=== PATIENT | male | born 1980 | race Caucasian/White ===

== ENCOUNTER 2025-02-12 16:32 | Emergency (ER) | payer MEDICAID ==
[~2025-02-12] VITALS: Ht 172.7 cm; Wt 87.2 kg
[2025-02-12 16:35] VITALS: BP 169/102; PULSE 115; RESP 20; O2SAT 100
--- NOTE | 2025-02-12 17:24 | RADIOLOGY REPORT ---
CLINICAL INDICATION: Left thumb injury TECHNIQUE: 3 radiographic views of the left fingers were obtained. COMPARISON: None FINDINGS/IMPRESSION: There is no evidence of acute fracture or dislocation. The visualized joint space is well maintained. The alignment is anatomical. There is no radiopaque foreign body. If symptoms persist, consider repeat imaging in 7-10 days to follow-up on occult fractures.
--- NOTE | 2025-02-12 18:06 | Physician Documentation ---
History of Present Illness ~ Chief Complaint: Laceration Stated Complaint: L THUMB LAC Time Seen by MD: 16:47 OK to notify your PCP?: Yes Primary Medical Doctor: None Source: patient Mode of Arrival: POV Exam Limitations: no limitations HPI This is a 44-year-old male who comes in for a laceration to the left thumb. The patient was using a table saw when he accidentally caught his some of the table saw. Bleeding stopped prior to arrival with direct pressure. The patient states he does not need a tetanus shot. Medication Reconciliation Allergies: Coded Allergies: meperidine HCl (Verified Allergy, Severe, 02/12/25) Scheduled PRN Hydrocodone Bit/Acetaminophen 5/325 MG ([place] 5/325 MG), 1 TAB PO Q4H PRN for moderate or severe pain Past Medical History Past Medical History: No Pertinent History Past Surgical History: no surgical history Alcohol Use: None Drug Use: none Occupation: employed Physical Exam Vital Signs: Temperature: 98.5, Source: Temporal, Heart Rate: 115, Respiratory Rate: 20, BP: 169/102, Pulse Oximetry: 100, Weight: 87.200 Oxygen Flow Rate: 0 General Appearance: alert, WD/WN Extremities To inspection of the left thumb the patient has atraumatic appearing laceration to the pad of the thumb with the tip. It is all in the flexor aspect. That has a proximally 1.5 cm in total length. There is active hemorrhaging but not arterial. This does not overlying the joint. The thumb has full flexion- extension 5/5 against resistance. The nail bed and nail are not involved. Cap refill less than 2 seconds and brisk of the tip of the thumb. Procedures Laceration/Wound Repair Laceration : Length (cm): 1.5 Anesthesia: Lidocaine Prep: betadine, irrigated by physician Margins: revised Repaired: skin Wound Repaired With: sutures Suture Size/Type: 4-0, ethilon Dressing Applied: gauze, non-adherent Tolerated Procedure Well?: yes, no complications Progress Results/Orders Reviewed/noted all lab results: Yes Results/Orders Orders - DANIEL KELLER Finger(S) (02/12/25 16:52) Laceration/I&D Tray Set Up (02/12/25 18:00) Completed Orders - DANIEL KELLER Finger(S) (02/12/25 16:52) Lidocaine 1% W/Preservative (Lidocaine 1 (02/12/25 18:00) Vital Signs 02/12/25 02/12/25 16:35 18:57 Temp 98.5 98.5 Pulse 115 Resp 20 B/P (MAP) 169/102 Pulse Ox 100 O2 Flow Rate 0 Medical Decision Making Additional information obtaine: N/A Findings I performed a digital block and explored the wound with a base and bloodless field. There was no significant underlying injury. I then irrigated with copious amount of normal saline then had the patient soak his thumb in a Betadine saline solution. I then trimmed off dramatic tissue and closed with 4- 0 nylon simple interrupted sutures. The patient tolerated the procedure well. Differential Dx:Considerations: Include: Laceration Additional Comments Left thumb laceration. Left thumb distal phalanx fracture. Open fracture left thumb Departure Disposition: HOME / SELF CARE / HOMELESS Impression: Primary Impression: Laceration of left thumb Condition: Stable Discharge Instructions: Laceration Care, Adult, [id number] Additional Instructions: The current dressing clean dry and do not remove it. After two days you can remove the dressing, gently cleanse the area with antibacterial soap and water, dry well and covered with a nonstick dressing. No peroxide. No Neosporin. No top of the alcohol. Suture removal in 10 days. Return to the ER for any worsening or concerning symptoms Referrals: NO PRIMARY CARE PROVIDER (PCP) Prescriptions Hydrocodone Bit/Acetaminophen 5/325 MG ([place] 5/325 MG) 5 Mg/325 Mg Tablet 1 TAB PO Q4H PRN for moderate or severe pain, #10 TAB Prov: DANIEL KELLER 02/12/25 Signature Scribe Signature: No scribe Attestation: The note accurately reflects work and decisions made by me.Daniel MCMANUS 02/12/25 18:53 DANIEL KELLER Feb 12, 2025 18:06
[2025-02-12] MEDS: LIDOcaine 1% (10mg/ml)w/preservative inj. 20ml MDV SQ ONE (18:11)
[2025-02-12] MEDS ORDERED: HYDR-3965 PO (18:45)
[2025-02-12 18:57] VITALS: TEMP 98.5
== END 2025-02-12 18:58 | disposition home or self-care (01) ==
LOC: ER 16:32
DX: S61.012A Laceration without foreign body of left thumb without damage to nail, initial encounter (principal); Z88.8 Allergy status to other drugs, medicaments and biological substances; W26.9XXA Contact with unspecified sharp object(s), initial encounter; Y93.89 Activity, other specified; Y92.89 Other specified places as the place of occurrence of the external cause; Y99.8 Other external cause status
CPT/HCPCS: 12001; 73140; 99283